=== PATIENT | male | born 1955 | race Caucasian/White ===

== ENCOUNTER 2017-11-07 08:54 | Inpatient (IN) | payer OTHER ==
[~2017-11-07] VITALS: Ht 172.7 cm; Wt 85.7 kg
--- NOTE | ~2017-11-07 | CN ---
PATIENT NAME:STEVE ROA MEDICAL RECORD: [id number] : 59 LOCATION:D[id number] ADMIT DATE: 11/07/17 ACCOUNT: [id number] CONSULTING PHYSICIAN: SUDHIR MULLINS MD REFERRING PHYSICIAN: ANN VERAS MD DATE OF CONSULTATION: 11/07/2017 CHIEF COMPLAINT: Abdominal pain. HISTORY OF PRESENT ILLNESS: The patient has had low abdominal pain for about 2 weeks. He has been prescribed laxatives as well as Flagyl and Cipro. He went and saw his primary care physician yesterday and then went to the urgent care clinic today, was told he had a bowel blockage and he needed to come to the Emergency Room. I personally discussed this case with Dr. Castillo. I personally reviewed the CT images. It reveals an intussusception. I ordered a dye enema to be performed under fluoroscopy by the radiologist in order to try to reduce the intussusception and this appears to have taken care of the problem at least temporarily. I think I am going to bowel prep the patient. Hopefully, we can bowel prep him and I can perform a right colectomy on him tomorrow to identify the bleeding source of this intussusception. This is a consultation note addendum. For the typed portion of the consult note, please see the chart. This would include the past medical and surgical history, current medications, allergies, social history, family history. REVIEW OF SYSTEMS: Positive for nausea. Positive for vomiting. No fever. Positive for weight loss, has lost about 100 pounds in the past year, but states that he has been trying to lose weight. No shortness of breath. No chest pain. The review of systems is negative other than as is described above. PHYSICAL EXAMINATION: GENERAL: The patient does not appear acutely ill. He does appear chronically ill. VITAL SIGNS: Reviewed. EARS: External ears appear normal. EYES: Extraocular movements are intact. NECK: Trachea midline. CHEST: No intercostal retractions. PULMONARY: Nonlabored, no stridor. ABDOMEN: There is a right-sided mass that I can palpate. EXTREMITIES: No peripheral cyanosis. INTEGUMENT: No rash, no ulcerations. PSYCHIATRIC: Normal affect. NEUROLOGIC: Nonfocal, no lethargy. The patient answers questions appropriately, moves all extremities well. BACK: No thoracic kyphosis. IMPRESSION: Intussusception of uncertain etiology. PLAN: Laparoscopic versus open right colectomy tomorrow. TRANSINT:[id number] Voice Confirmation ID: [id number] DOCUMENT ID: [id number] CONSULT REPORT [id number] STEVE ROA, SUDHIR GASPAR at 1742 CC: [id number] DICTATION DATE: 11/08/171811 STUDENT SERVICES REPRESENTATIVE: 11/08/17 191 [address] IN [place] [id number] [place] [id number]
[2017-11-07 09:58] LABS: BASOPHILS 0.2 % (0-2); EOSINOPHILS 1.8 % (0-7); HEMATOCRIT 39.4 % (42.0-54.0); IMMATURE GRANULOCYTES 0.2 % (0-5); MCH 30.6 pg (26.0-34.0); MCHC 35.5 g/dL (31.0-37.0); MEAN PLATELET VOLUME 8.5 fL (7.4-10.4); MONOCYTES 4.2 % (2-11); NEUTROPHILS 84.6 % (40-80); PLATELET COUNT 306 10x3/uL (130-400); RBC 4.58 10x6/uL (4.20-6.10); RDW 13.1 % (11.5-14.5); WBC 10.9 10x3/uL (4.8-10.8)
[2017-11-07 10:00] LABS: ALBUMIN 3.4 g/dL (3.4-5.0); ALKALINE PHOSPHATASE 51 U/L (46-116); ALT (SGPT) 27 U/L (10-68); BILIRUBIN - TOTAL 0.38 mg/dL (0.2-1.3); CALC OSMOLALITY 271 mosm/kg (275-300); CALCIUM 9.1 mg/dL (8.5-10.1); CARBON DIOXIDE 23.2 mmol/L (21.0-32.0); CHLORIDE - SERUM 101 mmol/L (98-107); CREATININE - SERUM 0.7 mg/dL (0.6-1.3); GLUCOSE 114 mg/dL (74-106); POTASSIUM - SERUM 4.1 mmol/L (3.5-5.1); PROTEIN - SERUM 6.8 g/dL (6.4-8.2); SODIUM 136 mmol/L (136-145); UREA NITROGEN 11 mg/dL (7-18); eGFR NON AFRICAN AMERICAN > 90 mL/min (90-120)
[2017-11-07 20:00] VITALS: BP 131/62
[2017-11-07 20:25] VITALS: BP 131/66
[2017-11-07] MEDS ORDERED: BAYER CHEWABLE81 MG PO (23:08)
[2017-11-07] MEDS ORDERED: LISINOPRIL5 MG PO (23:08)
[2017-11-07] MEDS ORDERED: FLAGYL500 MG PO (23:09)
[2017-11-07] MEDS ORDERED: CIPRO500 MG PO (23:10)
[2017-11-07] MEDS ORDERED: DULCOLAX10 MG/SUPP RC (23:11)
[2017-11-07] MEDS ORDERED: MIRALAX17 GM PO (23:12)
[2017-11-08] VITALS (12 sets, daily range): BP systolic 101–129; BP diastolic 59–71; Ht 172.7 cm; Wt 85.7 kg
[2017-11-08 00:07] LABS: APPEARANCE CLEAR (CLEAR); COLOR YELLOW (YELLOW); NITRITE NEGATIVE (NEGATIVE)
[2017-11-08 00:08] LABS: BILIRUBIN NEGATIVE (NEGATIVE); GLUCOSE NEGATIVE (NEGATIVE); KETONE NEGATIVE (NEGATIVE); PROTEIN NEGATIVE (NEGATIVE); UROBILINOGEN NORMAL (NORMAL)
[2017-11-08 00:10] LABS: BACTERIA FEW /hpf (NONE SEEN); EPITHELIAL CELLS 0-5 /hpf (0-5); HYALINE CAST 0-5 /lpf (NONE SEEN); MUCUS >1+ /lpf (NONE SEEN); RED CELLS - URINE 0-5 /hpf (0-5); WHITE CELLS - URINE 0-5 /hpf (0-5)
[2017-11-09] VITALS: BP 108/68
[2017-11-09 05:42] VITALS: BP 108/67
[2017-11-09 07:36] LABS: BASOPHILS 0.1 % (0-2); EOSINOPHILS 0.1 % (0-7); HEMATOCRIT 30.4 % (42.0-54.0); HEMOGLOBIN 10.6 g/dL (13.5-17.5); IMMATURE GRANULOCYTES 0.2 % (0-5); MCH 30.3 pg (26.0-34.0); MCHC 34.9 g/dL (31.0-37.0); MCV 86.9 fL (80.0-100.0); MEAN PLATELET VOLUME 8.5 fL (7.4-10.4); MONOCYTES 5.7 % (2-11); NEUTROPHILS 86.9 % (40-80); PLATELET COUNT 277 10x3/uL (130-400); RDW 13.2 % (11.5-14.5)
[2017-11-09 07:49] LABS: ALKALINE PHOSPHATASE 36 U/L (46-116); BILIRUBIN - TOTAL 0.41 mg/dL (0.2-1.3); CARBON DIOXIDE 23.2 mmol/L (21.0-32.0); CHLORIDE - SERUM 107 mmol/L (98-107); CREATININE - SERUM 0.7 mg/dL (0.6-1.3); GLUCOSE 84 mg/dL (74-106); MAGNESIUM - SERUM 1.8 mg/dL (1.8-2.4); PHOSPHOROUS 3.3 mg/dL (2.5-4.9); POTASSIUM - SERUM 3.8 mmol/L (3.5-5.1); SODIUM 140 mmol/L (136-145); eGFR NON AFRICAN AMERICAN > 90 mL/min (90-120)
[2017-11-09 07:50] LABS: ALBUMIN 2.5 g/dL (3.4-5.0); ALT (SGPT) 19 U/L (10-68); CALC OSMOLALITY 278 mosm/kg (275-300); UREA NITROGEN 15 mg/dL (7-18)
[2017-11-09 12:11] VITALS: BP 120/63
[2017-11-09 15:55] VITALS: BP 122/68
[2017-11-09 20:00] VITALS: BP 119/74
[2017-11-10] VITALS: BP 109/67
[2017-11-10 04:00] VITALS: BP 112/62
[2017-11-10 05:54] LABS: BASOPHILS 0.1 % (0-2); EOSINOPHILS 2.9 % (0-7); HEMATOCRIT 29.6 % (42.0-54.0); HEMOGLOBIN 10.3 g/dL (13.5-17.5); IMMATURE GRANULOCYTES 0.3 % (0-5); LYMPHOCYTES 15.9 % (15-50); MCH 30.6 pg (26.0-34.0); MCHC 34.8 g/dL (31.0-37.0); MCV 87.8 fL (80.0-100.0); MEAN PLATELET VOLUME 8.7 fL (7.4-10.4); MONOCYTES 5.5 % (2-11); NEUTROPHILS 75.3 % (40-80); PLATELET COUNT 246 10x3/uL (130-400); RBC 3.37 10x6/uL (4.20-6.10); RDW 13.4 % (11.5-14.5)
[2017-11-10 05:56] LABS: WBC 7.2 10x3/uL (4.8-10.8)
[2017-11-10 06:26] LABS: CALC OSMOLALITY 280 mosm/kg (275-300); CALCIUM 7.9 mg/dL (8.5-10.1); CARBON DIOXIDE 22.4 mmol/L (21.0-32.0); CHLORIDE - SERUM 105 mmol/L (98-107); CREATININE - SERUM 0.7 mg/dL (0.6-1.3); GLUCOSE 108 mg/dL (74-106); MAGNESIUM - SERUM 1.9 mg/dL (1.8-2.4); POTASSIUM - SERUM 3.5 mmol/L (3.5-5.1); SODIUM 139 mmol/L (136-145); UREA NITROGEN 17 mg/dL (7-18); eGFR NON AFRICAN AMERICAN > 90 mL/min (90-120)
[2017-11-10 06:27] LABS: PHOSPHOROUS 2.3 mg/dL (2.5-4.9)
[2017-11-10 08:40] VITALS: BP 111/61
[2017-11-10 12:36] VITALS: BP 107/63
[2017-11-10 16:56] VITALS: BP 111/69
[2017-11-10 20:27] VITALS: BP 398/57
[2017-11-11 00:22] VITALS: BP 129/75
[2017-11-11 06:43] LABS: BASOPHILS 0.1 % (0-2); EOSINOPHILS 3.8 % (0-7); HEMATOCRIT 33.5 % (42.0-54.0); HEMOGLOBIN 11.3 g/dL (13.5-17.5); IMMATURE GRANULOCYTES 0.1 % (0-5); LYMPHOCYTES 16.5 % (15-50); MCHC 33.7 g/dL (31.0-37.0); MCV 88.9 fL (80.0-100.0); MONOCYTES 5.4 % (2-11); NEUTROPHILS 74.1 % (40-80); PLATELET COUNT 256 10x3/uL (130-400); RBC 3.77 10x6/uL (4.20-6.10); RDW 13.4 % (11.5-14.5); WBC 7.3 10x3/uL (4.8-10.8)
[2017-11-11 07:06] LABS: CALC OSMOLALITY 283 mosm/kg (275-300); CALCIUM 8.3 mg/dL (8.5-10.1); CARBON DIOXIDE 25.2 mmol/L (21.0-32.0); CHLORIDE - SERUM 108 mmol/L (98-107); CREATININE - SERUM 0.8 mg/dL (0.6-1.3); GLUCOSE 97 mg/dL (74-106); SODIUM 143 mmol/L (136-145); eGFR NON AFRICAN AMERICAN > 90 mL/min (90-120)
[2017-11-11 07:07] LABS: PHOSPHOROUS 3.2 mg/dL (2.5-4.9); UREA NITROGEN 10 mg/dL (7-18)
[2017-11-11 08:36] VITALS: BP 128/68
[2017-11-11 12:04] VITALS: BP 124/70
[2017-11-11 16:14] VITALS: BP 131/73
[2017-11-11 21:12] VITALS: BP 106/67
[2017-11-12 05:14] LABS: BASOPHILS 0.1 % (0-2); EOSINOPHILS 2.8 % (0-7); HEMATOCRIT 31.1 % (42.0-54.0); HEMOGLOBIN 10.8 g/dL (13.5-17.5); IMMATURE GRANULOCYTES 0.2 % (0-5); LYMPHOCYTES 6.8 % (15-50); MCH 30.5 pg (26.0-34.0); MCHC 34.7 g/dL (31.0-37.0); MCV 87.9 fL (80.0-100.0); MEAN PLATELET VOLUME 9.1 fL (7.4-10.4); MONOCYTES 4.2 % (2-11); NEUTROPHILS 85.9 % (40-80); PLATELET COUNT 231 10x3/uL (130-400); RBC 3.54 10x6/uL (4.20-6.10); RDW 13.4 % (11.5-14.5)
[2017-11-12 05:21] LABS: WBC 13.1 10x3/uL (4.8-10.8)
[2017-11-12 05:37] LABS: CALC OSMOLALITY 280 mosm/kg (275-300); CALCIUM 8.2 mg/dL (8.5-10.1); CARBON DIOXIDE 25.1 mmol/L (21.0-32.0); CHLORIDE - SERUM 108 mmol/L (98-107); CREATININE - SERUM 0.6 mg/dL (0.6-1.3); GLUCOSE 95 mg/dL (74-106); MAGNESIUM - SERUM 1.9 mg/dL (1.8-2.4); PHOSPHOROUS 3.5 mg/dL (2.5-4.9); POTASSIUM - SERUM 3.5 mmol/L (3.5-5.1); SODIUM 142 mmol/L (136-145); UREA NITROGEN 8 mg/dL (7-18); eGFR NON AFRICAN AMERICAN > 90 mL/min (90-120)
[2017-11-12 08:38] VITALS: BP 116/68
[2017-11-12 12:23] VITALS: BP 133/78
[2017-11-12] MEDS ORDERED: TRANSDERM-SCO1 PATCH TRANSDERM (13:23)
[2017-11-12] MEDS ORDERED: DIFLUCAN150 MG PO (13:23)
[2017-11-12] MEDS ORDERED: NYSTATIN15 GM TOPICAL (13:23)
[2017-11-12] MEDS ORDERED: COLACE100 MG PO (14:51)
[2017-11-12] MEDS ORDERED: HYDROCODON-ACE1 EAC7 PO (14:53)
== END 2017-11-12 15:00 | disposition home or self-care (01) | DRG 330 ==
LOC: D.ER 08:54 → D.MS 18:33
PROVIDERS: Emergency Medicine; Internal Medicine Nephrology; Surgery
PROC: 0DTF0ZZ Resection of Right Large Intestine, Open Approach (ICD-10-PCS; principal; 2017-11-08 13:35)
PROC: 02HV33Z Insertion of Infusion Device into Superior Vena Cava, Percutaneous Approach (ICD-10-PCS; 2017-11-09)
PROC: B548ZZA Ultrasonography of Superior Vena Cava, Guidance (ICD-10-PCS; 2017-11-09)
DX: K56.1 Intussusception (principal); C83.19 Mantle cell lymphoma, extranodal and solid organ sites; K56.699 Other intestinal obstruction unspecified as to partial versus complete obstruction; I10 Essential (primary) hypertension; K46.9 Unspecified abdominal hernia without obstruction or gangrene; K38.8 Other specified diseases of appendix

== ENCOUNTER 2020-05-05 07:52 | Day surgery (SDC) | payer OTHER ==
[~2020-05-05] VITALS: Ht 172.7 cm; Wt 82.6 kg
[~2020-05-05 07:52] MED LIST: BAYER CHEWABLE81 MG PO; CIPRO500 MG PO; COLACE100 MG PO; DIFLUCAN150 MG PO; DULCOLAX10 MG/SUPP RC; FLAGYL500 MG PO; HYDROCODON-ACE1 EAC7 PO; IMBRUVICA140 MG PO; LISINOPRIL5 MG PO; MIRALAX17 GM PO; NYSTATIN15 GM TOPICAL; TRANSDERM-SCO1 PATCH TRANSDERM
[2020-05-05 08:27] LABS: EOSINOPHILS 4.1 % (0-7); HEMATOCRIT 38.2 % (42.0-54.0); HEMOGLOBIN 13.4 g/dL (13.5-17.5); LYMPHOCYTES 12.3 % (15-50); MCH 31.7 pg (26.0-34.0); MCHC 35.1 g/dL (31.0-37.0); MCV 90.3 fL (80.0-100.0); MEAN PLATELET VOLUME 9.6 fL (7.4-10.4); MONOCYTES 10.3 % (2-11); NEUTROPHILS 72.3 % (40-80); RBC 4.23 10x6/uL (4.20-6.10); RDW 13.3 % (11.5-14.5); WBC 4.9 10x3/uL (4.8-10.8)
[2020-05-05 08:28] LABS: PLATELET COUNT 165 10x3/uL (130-400)
[2020-05-05 08:45] LABS: INR 0.99 (0.85-1.17); PROTIME 13.1 SECONDS (11.6-15.0)
[2020-05-05 08:46] LABS: APTT 30.4 SECONDS (22.8-39.4)
[2020-05-05 09:25] VITALS: BP 105/69; Ht 172.7 cm; Wt 82.6 kg
--- NOTE | 2020-05-06 13:35 | OP ---
PATIENT NAME: STEVE ROA MEDICAL RECORD: [id number] :59 LOCATION:D.[facility] ADMISSION DATE: SURGEON: SUDHIR MULLINS MD DATE OF OPERATION: 05/05/2020 PREOPERATIVE DIAGNOSIS: Symptomatic right inguinal hernia. POSTOPERATIVE DIAGNOSES: 1. Symptomatic right indirect inguinal hernia. 2. Right cord lipoma. PROCEDURE: 1. Open symptomatic right indirect hernia repair with bilayered polypropylene mesh. 2. Excision of right cord lipoma. SURGEON: Sudhir Mullins MD ASSAULT AMPHIBIOUS VEHICLE OFFICER: Contreras Martinez, cartography technician. BLOOD LOSS: Minimal. ANESTHESIA: General. COMPLICATIONS: None. The risks, possible complications, alternatives of the procedure were explained to the patient. He elects to proceed. The discussion specifically included, but was not limited to, bleeding requiring emergency reoperation, infection, and chronic pain. The patient was extubated in the operating room electively on 05/05/2020. General anesthesia was induced by the anesthesia staff. The abdomen and genitals were sterilely prepped and draped. A transverse incision was accomplished in the right groin. Sharp dissection was carried down through skin and subcutaneous tissues as well as Hakeem's fascia. The external oblique aponeurosis was then opened along the direction of its fibers. I bluntly dissected down to the internal oblique and transverse abdominis muscles. I reduced an indirect hernia in its entirety. I opened the sac. There was a sliding component to the hernia. I ligated the sac highly with a pursestring 3-0 Vicryl suture. I then transected the sac distal to this. There was a cord lipoma and it was of significant size. I clamped across the vascular pedicle to the cord lipoma. I then transected the cord lipoma distal to this. The tissue between the clamp was then ligated with a 3-0 Vicryl suture. I cut 2 ovals out of a polypropylene mesh and sutured them together with a running #1 Ethibond. I then placed it on the preperitoneal space. Once I was satisfied with placement, I allowed the internal oblique and transverse abdominis muscles to come together. These were sutured together with multiple interrupted horizontal mattress 0 Ethibond incorporating a portion of the underlying mesh with the sutures. The external oblique aponeurosis was then closed with running #1 Vicryls. The Hakeem's fascia was approximated with interrupted 3-0 Vicryl. The subdermis was approximated with interrupted 3-0 OPERATIVE REPORT [id number] STEVE ROA. The skin was approximated with running intracuticular 4-0 Vicryl. Benzoin and Steri-Strips were applied. The patient was then extubated and conveyed to the postanesthesia care unit where he was in stable condition. He will be dismissed home on [place] as well as [place]. I will see him in the office in 2-3 weeks. TRANSINT:[id number] Voice Confirmation ID: [id number] DOCUMENT ID: [id number] SUDHIR MULLINS MD at 1335 CC: [id number] DICTATION DATE: 05/05/201832 WEAPONS ELECTRICAL ENGINEERING OFFICER: 05/06/20 0414 [facility] 05/05/20 [place] [id number] [place] [address]
== END 2020-05-05 16:30 | disposition home or self-care (01) ==
LOC: D.OPS 07:52
PROVIDERS: Anesthesiology; ATTEND Surgery
DX: K40.90 Unilateral inguinal hernia, without obstruction or gangrene, not specified as recurrent (principal); D17.79 Benign lipomatous neoplasm of other sites